=== PATIENT | female | born 1955 | race Caucasian/White ===

== ENCOUNTER 2019-07-30 10:55 | Emergency (ER) | payer OTHER ==
[~2019-07-30 10:55] MED LIST: Sodium Chloride 0.9% 100 ML BAG ONE
[2019-07-30] MEDS ORDERED: Morphine 4 MG/ML VIAL ONE (11:12)
[2019-07-30] MEDS ORDERED: Lidocaine 1% w/Epinephrine 1:100K 20 ML VIAL ONE (11:12)
[2019-07-30] MEDS ORDERED: Sodium Chloride 0.9% 100 ML ONE (12:02)
[2019-07-30] MEDS ORDERED: CEFAZOLIN 1 GM VIAL ONE (12:02)
[2019-07-30 12:09] LABS: #Basophils 0.1 thou/uL (0.0-0.2); #Lymphocytes 1.9 thou/uL (1.20-3.40); #Monocytes 0.7 thou/uL (0.11-0.59); #Neutrophils 11.2 thou/uL (1.40-6.50); %Basophils 0.7 % (0.0-1.0); %Eosinophils 0.2 % (0.0-10.0); %Monocytes 4.8 % (0.0-10.0); %Neutrophils 80.3 % (42.0-75.0); Mean Corpuscular HGB CONC 32.7 g/dL (32.0-36.0); Mean Corpuscular Hemoglobin 31.5 pg (27.0-31.0); Mean Corpuscular Volume 96.4 fL (78.0-98.0); Mean Platelet Volume 6.7 fL (7.4-10.4); Platelet Count 299 thou/uL (130-400); RBC Distribution Width 11.2 % (11.5-14.5); Red Blood Cell (RBC) Count 4.13 mill/uL (4.20-5.40); White Blood Cell (WBC) Count 13.9 thou/uL (4.8-10.8)
[2019-07-30 12:21] LABS: Anion Gap 13 mmol/L (10-20); BUN (Urea Nitrogen) 12 mg/dL (9.8-20.1); Calc. Creatinine Clearance 0 mL/min (70-130); Calcium 9.3 mg/dL (7.8-10.44); Carbon Dioxide 25 mmol/L (23-31); Chloride 107 mmol/L (98-107); Estimated GFR-MDRD 72; Glucose 155 mg/dL (80-115); Potassium 3.6 mmol/L (3.5-5.1); Sodium 141 mmol/L (136-145)
--- NOTE | 2019-07-30 13:44 | RAD ---
THREE VIEWS RIGHT HAND 07/30/19 COMPARISON: None. HISTORY: Fall off horse with pain and swelling. FINDINGS: Three views of the right hand shows moderate diffuse soft tissue swelling. There is a comminuted frac ture of the proximal aspect of the third metacarpal. There is a fracture of the metacarpal neck of th e fourth metacarpal. There are fractures of the proximal and distal aspect of the fifth metacarpal. T here is a proximal phalanx fracture of the small finger. No dislocation is seen. Hardware is seen in the distal radius. IMPRESSION: 1. Third through fifth metacarpal fractures. 2. Proximal phalanx fracture of the small finger. POS: E[facility]
--- NOTE | 2019-07-30 13:48 | RAD ---
THREE VIEWS OF THE RIGHT WRIST: 07/30/19 HISTORY: Fell off horse with pain and swelling. FINDINGS: Three views of the right wrist shows no evidence of acute fracture or dislocation of the distal radiu s or ulna. Fractures are seen in the third through fifth metacarpals and proximal phalanx of the smal l finger described on the hand series. Moderate diffuse soft tissue swelling is seen in the hand. IMPRESSION: 1. No evidence of fracture surrounding the wrist. 2. Fracture of the hand are described on the hand series. POS: [facility]ERNANDEZ
== END 2019-07-30 13:06 | disposition short-term general hospital (02) ==
LOC: MADERS 10:55
DX: S62.616B Displaced fracture of proximal phalanx of right little finger, initial encounter for open fracture (principal); S62.612A Displaced fracture of proximal phalanx of right middle finger, initial encounter for closed fracture; S62.614A Displaced fracture of proximal phalanx of right ring finger, initial encounter for closed fracture; W19.XXXA Unspecified fall, initial encounter
CPT/HCPCS: 29125; 80048; 85025; 93005; 96365; 96367; 96372; J0690; J2270; J3370; J3490